=== PATIENT | female | born 1955 | race Caucasian/White ===

== ENCOUNTER 2018-07-21 11:09 | Inpatient (IN) | payer OTHER, MEDICAID ==
[2018-07-21 13:01] LABS: ADD MAN DIFF? NO
[2018-07-21 13:04] LABS: BASOPHIL # 0.1 10^3/ul (0.0-0.1); BASOPHILS % 0.6 % (0.0-2.0); EOSINOPHILS # 0.1 10^3/ul (0.0-0.5); EOSINOPHILS % 1.3 % (0.0-7.0); HEMATOCRIT 39.4 % (37.0-47.0); HEMOGLOBIN 13.5 g/dl (12.0-16.0); LYMPHOCYTES % 19.9 % (15.0-51.0); MEAN CORPUSCULAR HEMOGLOBIN 30.1 pg (29.0-33.0); MEAN CORPUSCULAR HGB CONC 34.3 g/dl (32.0-37.0); MEAN CORPUSCULAR VOLUME 87.9 fl (82.0-101.0); MEAN PLATELET VOLUME 8.7 fl (7.4-10.4); MONOCYTE # 0.8 10^3/ul (0.3-0.9); MONOCYTES % 7.4 % (0.0-11.0); NEUTROPHIL # 7.2 10^3/ul (1.6-7.5); NEUTROPHILS % 70.2 % (39.0-77.0); PLATELET COUNT 218 10^3/UL (140-415); RED BLOOD COUNT 4.48 10^6/ul (4.20-5.40); RED CELL DISTRIBUTION WIDTH 12.6 % (11.5-14.5)
[2018-07-21 13:04] LABS: WHITE BLOOD COUNT 10.2 10^3/ul (4.8-10.8)
[2018-07-21 13:22] LABS: ANION GAP 8 (5-13); BLOOD UREA NITROGEN 10 mg/dl (7-20); CALCIUM 9.4 mg/dl (8.4-10.2); CARBON DIOXIDE 28 mmol/L (21-31); CHLORIDE 100 mmol/L (97-110); Estimated GFR > 60 mL/min (>60); GLUCOSE 79 mg/dl (70-220); POTASSIUM 3.7 mmol/L (3.5-5.1); SODIUM 136 mmol/L (135-144)
[2018-07-21] MEDS: HYDROCODONE/APAP (10/325) TAB PO (15:11)
[2018-07-21] MEDS ORDERED: DOCUSATE SODIUM 100 MG CAP PO (18:30)
[2018-07-21] MEDS: [UNRECOGNIZED DRUG - OTHER] XX (20:00)
[2018-07-21] MEDS ORDERED: PHENYTOIN 100 MG CAP PO (21:00)
[2018-07-21] MEDS: ALBUTEROL HFA 8 GM INHALER INH (21:00)
[2018-07-21] MEDS: SODIUM CHLORIDE 5% BOTH EYES (21:05)
[2018-07-21] MEDS: GABAPENTIN 400 MG CAP PO (21:05)
[2018-07-21] MEDS: IBUPROFEN 800 MG TAB PO (21:05)
[2018-07-21] MEDS: PHENYTOIN 100 MG CAP PO (21:06)
[2018-07-21] MEDS: LAMOTRIGINE 100 MG TAB PO (21:06)
[2018-07-21] MEDS: traZODone 100 MG TAB PO (21:06)
[2018-07-21] MEDS: FAMOTIDINE 20 MG TAB PO (21:06)
[2018-07-22] MEDS: HYDROCODONE/APAP (5/325) TAB PO ×2 (04:43→12:12)
[2018-07-22 05:41] LABS: ADD MAN DIFF? NO
[2018-07-22 05:47] LABS: BASOPHIL # 0.1 10^3/ul (0.0-0.1); BASOPHILS % 0.7 % (0.0-2.0); EOSINOPHILS # 0.2 10^3/ul (0.0-0.5); EOSINOPHILS % 2.3 % (0.0-7.0); HEMATOCRIT 39.3 % (37.0-47.0); HEMOGLOBIN 13.6 g/dl (12.0-16.0); LYMPHOCYTES # 2.2 10^3/ul (0.8-2.9); LYMPHOCYTES % 30.4 % (15.0-51.0); MEAN CORPUSCULAR HEMOGLOBIN 30.8 pg (29.0-33.0); MEAN CORPUSCULAR HGB CONC 34.6 g/dl (32.0-37.0); MEAN CORPUSCULAR VOLUME 88.9 fl (82.0-101.0); MEAN PLATELET VOLUME 8.6 fl (7.4-10.4); MONOCYTE # 0.5 10^3/ul (0.3-0.9); MONOCYTES % 7.3 % (0.0-11.0); NEUTROPHIL # 4.3 10^3/ul (1.6-7.5); NEUTROPHILS % 58.7 % (39.0-77.0); PLATELET COUNT 211 10^3/UL (140-415); RED BLOOD COUNT 4.42 10^6/ul (4.20-5.40); RED CELL DISTRIBUTION WIDTH 12.7 % (11.5-14.5)
[2018-07-22 05:47] LABS: WHITE BLOOD COUNT 7.2 10^3/ul (4.8-10.8)
[2018-07-22] MEDS ORDERED: PANTOPRAZOLE (EC) 40 MG TAB PO (06:00)
[2018-07-22 06:20] LABS: ALANINE AMINOTRANSFERASE 11 IU/L (13-69); ALBUMIN 3.7 g/dl (3.3-4.9); ALBUMIN/GLOBULIN RATIO 1.37; ALKALINE PHOSPHATASE 105 IU/L (42-121); ANION GAP 8 (5-13); ASPARTATE AMINO TRANSFERASE 13 IU/L (15-46); BILIRUBIN,INDIRECT 0.3 mg/dl (0-1.1); BILIRUBIN,TOTAL 0.3 mg/dl (0.2-1.3); BLOOD UREA NITROGEN 8 mg/dl (7-20); CALCIUM 9.5 mg/dl (8.4-10.2); CARBON DIOXIDE 29 mmol/L (21-31); CHLORIDE 103 mmol/L (97-110); CREATININE 0.46 mg/dl (0.44-1.00); Estimated GFR > 60 mL/min (>60); GLUCOSE 90 mg/dl (70-220); POTASSIUM 3.5 mmol/L (3.5-5.1); SODIUM 140 mmol/L (135-144); TOTAL PROTEIN 6.4 g/dl (6.1-8.1)
[2018-07-22] MEDS: QUETIAPINE 25 MG TAB PO (09:00)
[2018-07-22] MEDS: IBUPROFEN 800 MG TAB PO ×2 (09:17→13:00)
[2018-07-22] MEDS: PHENYTOIN 100 MG CAP PO ×2 (09:18→20:35)
[2018-07-22] MEDS: ARIPIPRAZOLE 10 MG TAB PO (09:19)
[2018-07-22] MEDS: DULOXETINE 30 MG CAP DR PO (09:19)
[2018-07-22] MEDS: DOCUSATE SODIUM 100 MG CAP PO (09:19)
[2018-07-22] MEDS: FAMOTIDINE 20 MG TAB PO ×2 (09:20→20:35)
[2018-07-22] MEDS: GABAPENTIN 400 MG CAP PO ×2 (09:20→20:35)
[2018-07-22] MEDS: LAMOTRIGINE 100 MG TAB PO ×2 (09:21→20:36)
[2018-07-22] MEDS: HYDROCHLOROTHIAZIDE 12.5 MG CAP PO (09:21)
[2018-07-22] MEDS: SODIUM CHLORIDE 5% BOTH EYES ×2 (09:22→20:25)
[2018-07-22] MEDS: morphine 2 MG INJ IV ×3 (09:22→21:22)
[2018-07-22] MEDS: FLUTICASONE/VILANTEROL 200-25 INH DEVICE INH (09:22)
[2018-07-22] MEDS ORDERED: hydrALAzine 20 MG INJ IV (12:00)
[2018-07-22] MEDS: AMLODIPINE 5 MG TAB PO (13:09)
[2018-07-22] MEDS: traZODone 100 MG TAB PO (20:35)
[2018-07-23] MEDS: morphine 2 MG INJ IV ×3 (02:28→15:09)
[2018-07-23] MEDS: HYDROCODONE/APAP (5/325) TAB PO ×3 (06:38→20:39)
[2018-07-23] MEDS: PHENYTOIN 100 MG CAP PO ×2 (08:54→21:17)
[2018-07-23] MEDS: LAMOTRIGINE 100 MG TAB PO ×2 (08:55→21:16)
[2018-07-23] MEDS: AMLODIPINE 5 MG TAB PO (08:57)
[2018-07-23] MEDS: HYDROCHLOROTHIAZIDE 12.5 MG CAP PO (08:57)
[2018-07-23] MEDS: QUETIAPINE 25 MG TAB PO ×2 (08:57→21:17)
[2018-07-23] MEDS: SODIUM CHLORIDE 5% BOTH EYES ×2 (08:58→21:21)
[2018-07-23] MEDS: HYDROmorphONE 0.5 MG/0.5 ML SYG IV ×3 (11:34→18:59)
[2018-07-23] MEDS: GABAPENTIN 400 MG CAP PO ×2 (11:34→21:17)
[2018-07-23] MEDS: FAMOTIDINE 20 MG TAB PO ×2 (11:37→21:17)
[2018-07-23] MEDS: ARIPIPRAZOLE 10 MG TAB PO (11:37)
[2018-07-23] MEDS: FLUTICASONE/VILANTEROL 200-25 INH DEVICE INH (11:38)
[2018-07-23] MEDS: DOCUSATE SODIUM 100 MG CAP PO (11:38)
[2018-07-23] MEDS: DULOXETINE 30 MG CAP DR PO ×2 (11:49→21:18)
[2018-07-23] MEDS: traZODone 100 MG TAB PO (21:17)
[2018-07-23] MEDS: ALBUTEROL HFA 8 GM INHALER INH (22:53)
[2018-07-24] MEDS: HYDROCODONE/APAP (5/325) TAB PO ×4 (04:18→23:15)
[2018-07-24] MEDS: HYDROmorphONE 0.5 MG/0.5 ML SYG IV ×4 (07:48→20:09)
[2018-07-24] MEDS: FLUTICASONE/VILANTEROL 200-25 INH DEVICE INH (08:41)
[2018-07-24] MEDS: LAMOTRIGINE 100 MG TAB PO ×2 (08:41→20:10)
[2018-07-24] MEDS: DULOXETINE 30 MG CAP DR PO ×2 (08:41→20:11)
[2018-07-24] MEDS: FAMOTIDINE 20 MG TAB PO ×2 (08:41→20:12)
[2018-07-24] MEDS: GABAPENTIN 400 MG CAP PO ×2 (08:42→20:13)
[2018-07-24] MEDS: SODIUM CHLORIDE 5% BOTH EYES ×2 (08:42→20:14)
[2018-07-24] MEDS: DOCUSATE SODIUM 100 MG CAP PO (08:42)
[2018-07-24] MEDS: PHENYTOIN 100 MG CAP PO ×2 (08:42→20:11)
[2018-07-24] MEDS: AMLODIPINE 5 MG TAB PO (08:43)
[2018-07-24] MEDS: HYDROCHLOROTHIAZIDE 12.5 MG CAP PO (08:44)
[2018-07-24] MEDS: ARIPIPRAZOLE 10 MG TAB PO (10:18)
[2018-07-24 11:40] LABS: ADD MAN DIFF? NO
[2018-07-24 11:46] LABS: WHITE BLOOD COUNT 8.9 10^3/ul (4.8-10.8)
[2018-07-24 11:46] LABS: BASOPHIL # 0.1 10^3/ul (0.0-0.1); BASOPHILS % 0.6 % (0.0-2.0); EOSINOPHILS # 0.2 10^3/ul (0.0-0.5); EOSINOPHILS % 2.2 % (0.0-7.0); HEMATOCRIT 40.4 % (37.0-47.0); HEMOGLOBIN 13.8 g/dl (12.0-16.0); LYMPHOCYTES # 2.2 10^3/ul (0.8-2.9); LYMPHOCYTES % 24.4 % (15.0-51.0); MEAN CORPUSCULAR HEMOGLOBIN 30.2 pg (29.0-33.0); MEAN CORPUSCULAR HGB CONC 34.2 g/dl (32.0-37.0); MEAN CORPUSCULAR VOLUME 88.4 fl (82.0-101.0); MEAN PLATELET VOLUME 8.5 fl (7.4-10.4); MONOCYTE # 0.7 10^3/ul (0.3-0.9); MONOCYTES % 7.9 % (0.0-11.0); NEUTROPHIL # 5.7 10^3/ul (1.6-7.5); NEUTROPHILS % 64.5 % (39.0-77.0); PLATELET COUNT 207 10^3/UL (140-415); RED BLOOD COUNT 4.57 10^6/ul (4.20-5.40); RED CELL DISTRIBUTION WIDTH 12.8 % (11.5-14.5)
[2018-07-24 12:06] LABS: INR 0.94; PARTIAL THROMBOPLASTIN TIME 29.6 Sec (23.0-35.0); PROTIME 12.7 Sec (11.9-14.9)
[2018-07-24 12:11] LABS: ANION GAP 8 (5-13); BLOOD UREA NITROGEN 8 mg/dl (7-20); CALCIUM 9.7 mg/dl (8.4-10.2); CARBON DIOXIDE 31 mmol/L (21-31); CHLORIDE 97 mmol/L (97-110); CREATININE 0.46 mg/dl (0.44-1.00); Estimated GFR > 60 mL/min (>60); GLUCOSE 127 mg/dl (70-220); POTASSIUM 3.2 mmol/L (3.5-5.1); SODIUM 136 mmol/L (135-144)
[2018-07-24] MEDS: POTASSIUM CHLORIDE 20 MEQ POWDER FOR ORAL SOLN PO (16:18)
[2018-07-24] MEDS: QUETIAPINE 25 MG TAB PO ×2 (20:11→22:39)
[2018-07-24] MEDS: traZODone 100 MG TAB PO (22:39)
[2018-07-25] MEDS: HYDROmorphONE 0.5 MG/0.5 ML SYG IV ×4 (05:23→16:22)
[2018-07-25 06:10] LABS: ANION GAP 6 (5-13); BLOOD UREA NITROGEN 10 mg/dl (7-20); CALCIUM 9.3 mg/dl (8.4-10.2); CARBON DIOXIDE 31 mmol/L (21-31); CHLORIDE 101 mmol/L (97-110); CREATININE 0.46 mg/dl (0.44-1.00); Estimated GFR > 60 mL/min (>60); GLUCOSE 104 mg/dl (70-220); POTASSIUM 3.5 mmol/L (3.5-5.1); SODIUM 138 mmol/L (135-144)
[2018-07-25] MEDS ORDERED: CEFAZOLIN 1 GM INJ ×2 (07:32→10:49)
[2018-07-25] MEDS ORDERED: PHENYLephrine (100 MCG/ML) 10ML SYG (08:04)
[2018-07-25] MEDS ORDERED: HYDROmorphONE 2 MG/ML SYG (08:04)
[2018-07-25] MEDS: GABAPENTIN 400 MG CAP PO ×2 (09:00→19:46)
[2018-07-25] MEDS: HYDROCHLOROTHIAZIDE 12.5 MG CAP PO (09:00)
[2018-07-25] MEDS: AMLODIPINE 5 MG TAB PO (09:00)
[2018-07-25] MEDS: FLUTICASONE/VILANTEROL 200-25 INH DEVICE INH (09:00)
[2018-07-25] MEDS: SODIUM CHLORIDE 5% BOTH EYES ×2 (09:00→23:06)
[2018-07-25] MEDS: ARIPIPRAZOLE 10 MG TAB PO (09:00)
[2018-07-25] MEDS: DOCUSATE SODIUM 100 MG CAP PO ×3 (09:00→21:00)
[2018-07-25] MEDS: DULOXETINE 30 MG CAP DR PO ×2 (09:00→17:58)
[2018-07-25] MEDS: PHENYTOIN 100 MG CAP PO ×2 (09:00→19:45)
[2018-07-25] MEDS: FAMOTIDINE 20 MG TAB PO ×2 (09:00→19:46)
[2018-07-25] MEDS ORDERED: FENTAnyl 50 MCG/ML VIAL (09:00)
[2018-07-25] MEDS: LAMOTRIGINE 100 MG TAB PO ×2 (09:00→19:45)
[2018-07-25] MEDS ORDERED: LABETALOL HCL 20MG INJ (09:33)
[2018-07-25] MEDS: VANCOMYCIN 1 GM INJ (09:36)
[2018-07-25] MEDS: HEPARIN 1000 UNITS/ML 10 ML INJ (09:37)
[2018-07-25] MEDS: THROMBIN (BOVINE) 5,000 UNIT VIAL TP ×2 (09:38→10:27)
[2018-07-25] MEDS: GELATIN SIZE 100 SPONGE (09:38)
[2018-07-25] MEDS ORDERED: ACETAMINOPHEN 325 MG TAB PO (10:30)
[2018-07-25] MEDS ORDERED: NALOXONE (0.4 MG/ML) INJ IV (10:30)
[2018-07-25] MEDS: HEMOSTATIC MATRIX SYG ZFS (10:30)
[2018-07-25] MEDS ORDERED: AL HYDROX/MG HYDROX/SIMETH 30 ML CUP PO (10:30)
[2018-07-25] MEDS ORDERED: NACL 0.9% 3 ML SYG IV (10:30)
[2018-07-25] MEDS ORDERED: DEXAMETHASONE 4 MG/ML 5 ML INJ (10:49)
[2018-07-25] MEDS ORDERED: ONDANSETRON 4 MG INJ (10:50)
[2018-07-25] MEDS ORDERED: SUGAMMADEX SODIUM 200 MG/2 ML VIAL IV (11:31)
[2018-07-25] MEDS ORDERED: METOCLOPRAMIDE 10 MG INJ IV (12:00)
[2018-07-25] MEDS ORDERED: EPHEDrine SULFATE 50 MG/5 ML SYG IV (12:00)
[2018-07-25] MEDS ORDERED: LABETALOL HCL 20MG INJ IV (12:00)
[2018-07-25] MEDS ORDERED: MIDAZOLAM 1 MG/ML 2 ML INJ IV (12:00)
[2018-07-25] MEDS ORDERED: HYDROmorphONE 0.5 MG/0.5 ML SYG IV ×2 (12:00)
[2018-07-25] MEDS ORDERED: hydrALAzine 20 MG INJ IV (12:00)
[2018-07-25] MEDS ORDERED: MEPERIDINE 25 MG INJ IV (12:00)
[2018-07-25] MEDS ORDERED: ONDANSETRON 4 MG INJ IV (12:00)
[2018-07-25] MEDS ORDERED: DIPHENHYDRAMINE 50 MG INJ IV (12:00)
[2018-07-25] MEDS ORDERED: ALBUTEROL 0.083% (NEB) 2.5 MG/3 ML AMP HHN (12:00)
[2018-07-25] MEDS: ONDANSETRON 4 MG INJ IV (12:41)
[2018-07-25] MEDS: CEFAZOLIN 2 GM/50 ML (PMX) 50 ML IVPB ×2 (13:19→23:06)
[2018-07-25] MEDS: HYDROCODONE/APAP (5/325) TAB PO (13:31)
[2018-07-25] MEDS ORDERED: MAGNESIUM SULFATE 2 GM/50 ML 50 ML (15:57)
[2018-07-25 16:19] LABS: WHITE BLOOD COUNT 20.5 10^3/ul (4.8-10.8)
[2018-07-25 16:19] LABS: HEMATOCRIT 36.6 % (37.0-47.0); HEMOGLOBIN 12.6 g/dl (12.0-16.0); MEAN CORPUSCULAR HEMOGLOBIN 30.6 pg (29.0-33.0); MEAN CORPUSCULAR HGB CONC 34.4 g/dl (32.0-37.0); MEAN CORPUSCULAR VOLUME 88.8 fl (82.0-101.0); MEAN PLATELET VOLUME 9.2 fl (7.4-10.4); PLATELET COUNT 216 10^3/UL (140-415); RED BLOOD COUNT 4.12 10^6/ul (4.20-5.40); RED CELL DISTRIBUTION WIDTH 12.5 % (11.5-14.5)
[2018-07-25] MEDS: NS + KCL 20 MEQ 1,000 ML IV ×2 (16:22→23:07)
[2018-07-25 16:30] LABS: ADD MAN DIFF? YES
[2018-07-25 16:41] LABS: ALANINE AMINOTRANSFERASE 24 IU/L (13-69); ALBUMIN 3.5 g/dl (3.3-4.9); ALBUMIN/GLOBULIN RATIO 1.29; ALKALINE PHOSPHATASE 103 IU/L (42-121); ANION GAP 10 (5-13); ASPARTATE AMINO TRANSFERASE 20 IU/L (15-46); BILIRUBIN,INDIRECT 0.6 mg/dl (0-1.1); BILIRUBIN,TOTAL 0.6 mg/dl (0.2-1.3); BLOOD UREA NITROGEN 13 mg/dl (7-20); CALCIUM 9.5 mg/dl (8.4-10.2); CARBON DIOXIDE 27 mmol/L (21-31); CHLORIDE 100 mmol/L (97-110); CREATININE 0.54 mg/dl (0.44-1.00); Estimated GFR > 60 mL/min (>60); GLUCOSE 167 mg/dl (70-220); MAGNESIUM 1.5 mg/dl (1.7-2.5); PHOSPHORUS 2.5 mg/dl (2.5-4.9); POTASSIUM 3.7 mmol/L (3.5-5.1); SODIUM 137 mmol/L (135-144); TOTAL PROTEIN 6.2 g/dl (6.1-8.1)
[2018-07-25 16:54] LABS: BAND NEUTROPHILS #M 0.4 10^3/ul (0.0-0.6); BAND NEUTROPHILS % (M) 2 % (0-4); LYMPHOCYTES #M 0.8 10^3/ul (0.8-2.9); LYMPHOCYTES % (M) 4 % (15-51); MONOCYTE #M 0.8 10^3/ul (0.3-0.9); MONOCYTES % (M) 4 % (0-11); PLATELET ESTIMATE NORMAL; SEG NEUT #M 18.5 10^3/ul (1.6-7.5); SEGMENTED NEUTROPHILS (M) % 90 % (39-77); SMUDGE%M 11 % (0-0)
[2018-07-25] MEDS: HYDROmorphONE 0.2 MG/ML PCA IV (17:51)
[2018-07-25] MEDS: QUETIAPINE 25 MG TAB PO (17:58)
[2018-07-25] MEDS: traZODone 100 MG TAB PO (19:45)
[2018-07-25] MEDS: ZOLPIDEM 5 MG TAB PO (19:45)
[2018-07-26] MEDS: NS + KCL 20 MEQ 1,000 ML IV ×2 (01:04→13:37)
[2018-07-26] MEDS: KETOROLAC 30 MG INJ IV ×2 (01:04→17:11)
[2018-07-26 05:31] LABS: HEMATOCRIT 32.5 % (37.0-47.0)
[2018-07-26 05:59] LABS: ANION GAP 6 (5-13); BLOOD UREA NITROGEN 17 mg/dl (7-20); CALCIUM 9.1 mg/dl (8.4-10.2); CARBON DIOXIDE 29 mmol/L (21-31); CHLORIDE 104 mmol/L (97-110); CREATININE 0.78 mg/dl (0.44-1.00); Estimated GFR > 60 mL/min (>60); GLUCOSE 151 mg/dl (70-220); POTASSIUM 4.3 mmol/L (3.5-5.1); SODIUM 139 mmol/L (135-144)
[2018-07-26] MEDS: CEFAZOLIN 2 GM/50 ML (PMX) 50 ML IVPB ×3 (06:20→23:48)
[2018-07-26] MEDS: SODIUM CHLORIDE 5% BOTH EYES ×2 (09:00→20:41)
[2018-07-26] MEDS: FLUTICASONE/VILANTEROL 200-25 INH DEVICE INH (09:00)
[2018-07-26] MEDS: GABAPENTIN 400 MG CAP PO ×2 (09:14→20:40)
[2018-07-26] MEDS: PHENYTOIN 100 MG CAP PO ×2 (09:14→20:41)
[2018-07-26] MEDS: LAMOTRIGINE 100 MG TAB PO ×2 (09:14→20:40)
[2018-07-26] MEDS: DOCUSATE SODIUM 100 MG CAP PO ×2 (09:14→20:41)
[2018-07-26] MEDS: AMLODIPINE 5 MG TAB PO (09:15)
[2018-07-26] MEDS: DULOXETINE 30 MG CAP DR PO ×2 (09:15→20:41)
[2018-07-26] MEDS: ARIPIPRAZOLE 10 MG TAB PO (09:15)
[2018-07-26] MEDS: HYDROCHLOROTHIAZIDE 12.5 MG CAP PO (09:15)
[2018-07-26] MEDS: FAMOTIDINE 20 MG TAB PO ×2 (09:15→20:41)
[2018-07-26] MEDS: HYDROmorphONE 0.2 MG/ML PCA IV (10:44)
[2018-07-26] MEDS ORDERED: LORAZEPAM 2 MG INJ (17:24)
[2018-07-26] MEDS: LORAZEPAM 2 MG INJ IV (17:41)
[2018-07-26] MEDS: traZODone 100 MG TAB PO (20:40)
[2018-07-26] MEDS: HYDROmorphONE 0.5 MG/0.5 ML SYG IV (20:48)
[2018-07-26] MEDS: ZOLPIDEM 5 MG TAB PO (23:48)
[2018-07-27] MEDS: NS + KCL 20 MEQ 1,000 ML IV ×2 (04:50→12:54)
[2018-07-27 05:13] LABS: ADD MAN DIFF? NO
[2018-07-27] MEDS: CEFAZOLIN 2 GM/50 ML (PMX) 50 ML IVPB ×3 (05:14→21:49)
[2018-07-27 05:21] LABS: ABNORMAL IP MESSAGE 1; BASOPHIL # 0.1 10^3/ul (0.0-0.1); BASOPHILS % 0.4 % (0.0-2.0); EOSINOPHILS # 0.1 10^3/ul (0.0-0.5); EOSINOPHILS % 0.4 % (0.0-7.0); HEMATOCRIT 25.5 % (37.0-47.0); HEMOGLOBIN 8.6 g/dl (12.0-16.0); LYMPHOCYTES # 1.7 10^3/ul (0.8-2.9); LYMPHOCYTES % 10.9 % (15.0-51.0); MEAN CORPUSCULAR HEMOGLOBIN 30.8 pg (29.0-33.0); MEAN CORPUSCULAR HGB CONC 33.7 g/dl (32.0-37.0); MEAN CORPUSCULAR VOLUME 91.4 fl (82.0-101.0); MEAN PLATELET VOLUME 9.2 fl (7.4-10.4); MONOCYTE # 1.5 10^3/ul (0.3-0.9); MONOCYTES % 9.8 % (0.0-11.0); NEUTROPHILS % 77.3 % (39.0-77.0); PLATELET COUNT 160 10^3/UL (140-415); RED BLOOD COUNT 2.79 10^6/ul (4.20-5.40)
[2018-07-27 05:21] LABS: WHITE BLOOD COUNT 15.5 10^3/ul (4.8-10.8)
[2018-07-27 05:41] LABS: POSITIVE DIFF @See below
[2018-07-27 06:08] LABS: ANION GAP 3 (5-13); BLOOD UREA NITROGEN 11 mg/dl (7-20); CALCIUM 8.7 mg/dl (8.4-10.2); CARBON DIOXIDE 27 mmol/L (21-31); CHLORIDE 107 mmol/L (97-110); CREATININE 0.43 mg/dl (0.44-1.00); Estimated GFR > 60 mL/min (>60); GLUCOSE 119 mg/dl (70-220); SODIUM 137 mmol/L (135-144)
[2018-07-27] MEDS: HYDROmorphONE 0.5 MG/0.5 ML SYG IV ×2 (08:39→21:34)
[2018-07-27] MEDS: SODIUM CHLORIDE 5% BOTH EYES ×2 (09:02→21:29)
[2018-07-27] MEDS: DULOXETINE 30 MG CAP DR PO ×2 (09:04→21:20)
[2018-07-27] MEDS: PHENYTOIN 100 MG CAP PO ×2 (09:04→21:24)
[2018-07-27] MEDS: ARIPIPRAZOLE 10 MG TAB PO (09:04)
[2018-07-27] MEDS: GABAPENTIN 400 MG CAP PO ×2 (09:04→21:28)
[2018-07-27] MEDS: LAMOTRIGINE 100 MG TAB PO ×2 (09:04→21:20)
[2018-07-27] MEDS: AMLODIPINE 5 MG TAB PO (09:05)
[2018-07-27] MEDS: FAMOTIDINE 20 MG TAB PO ×2 (09:05→21:28)
[2018-07-27] MEDS: DOCUSATE SODIUM 100 MG CAP PO ×2 (09:05→21:24)
[2018-07-27] MEDS: HYDROCHLOROTHIAZIDE 12.5 MG CAP PO (09:05)
[2018-07-27] MEDS: FLUTICASONE/VILANTEROL 200-25 INH DEVICE INH (11:08)
[2018-07-27] MEDS: KETOROLAC 30 MG INJ IV (12:56)
[2018-07-27] MEDS: LORAZEPAM 2 MG INJ IV (13:30)
[2018-07-27] MEDS: ONDANSETRON 4 MG INJ IV (17:38)
[2018-07-27] MEDS: traZODone 100 MG TAB PO (21:24)
[2018-07-27] MEDS: ZOLPIDEM 5 MG TAB PO (21:28)
[2018-07-27] MEDS: ALBUTEROL HFA 8 GM INHALER INH (21:49)
[2018-07-28] MEDS: NS + KCL 20 MEQ 1,000 ML IV ×2 (01:07→11:40)
[2018-07-28 05:43] LABS: ADD MAN DIFF? NO
[2018-07-28 05:47] LABS: BASOPHILS % 0.2 % (0.0-2.0); EOSINOPHILS # 0.1 10^3/ul (0.0-0.5); EOSINOPHILS % 0.8 % (0.0-7.0); HEMATOCRIT 28.1 % (37.0-47.0); HEMOGLOBIN 9.7 g/dl (12.0-16.0); LYMPHOCYTES # 1.6 10^3/ul (0.8-2.9); LYMPHOCYTES % 9.6 % (15.0-51.0); MEAN CORPUSCULAR HEMOGLOBIN 30.8 pg (29.0-33.0); MEAN CORPUSCULAR HGB CONC 34.5 g/dl (32.0-37.0); MEAN CORPUSCULAR VOLUME 89.2 fl (82.0-101.0); MONOCYTE # 1.2 10^3/ul (0.3-0.9); NEUTROPHIL # 13.4 10^3/ul (1.6-7.5); NEUTROPHILS % 81.3 % (39.0-77.0); NUCLEATED RED BLOOD CELLS% 0.1 /100WBC (0.0-0.0); PLATELET COUNT 209 10^3/UL (140-415); RED BLOOD COUNT 3.15 10^6/ul (4.20-5.40); RED CELL DISTRIBUTION WIDTH 12.9 % (11.5-14.5)
[2018-07-28 05:47] LABS: WHITE BLOOD COUNT 16.5 10^3/ul (4.8-10.8)
[2018-07-28] MEDS: HYDROmorphONE 0.5 MG/0.5 ML SYG IV ×3 (05:53→19:57)
[2018-07-28 06:07] LABS: INR 1.15; PROTIME 14.8 Sec (11.9-14.9); PT RATIO 1.2
[2018-07-28 06:08] LABS: PARTIAL THROMBOPLASTIN TIME 31.6 Sec (23.0-35.0)
[2018-07-28 06:29] LABS: ANION GAP 6 (5-13); BLOOD UREA NITROGEN 5 mg/dl (7-20); CALCIUM 8.6 mg/dl (8.4-10.2); CARBON DIOXIDE 25 mmol/L (21-31); CHLORIDE 106 mmol/L (97-110); CREATININE 0.39 mg/dl (0.44-1.00); Estimated GFR > 60 mL/min (>60); GLUCOSE 105 mg/dl (70-220); POTASSIUM 3.8 mmol/L (3.5-5.1); SODIUM 137 mmol/L (135-144)
[2018-07-28] MEDS: CEFAZOLIN 2 GM/50 ML (PMX) 50 ML IVPB ×3 (06:47→21:47)
[2018-07-28] MEDS ORDERED: GELATIN SIZE 100 SPONGE (07:16)
[2018-07-28] MEDS ORDERED: THROMBIN (BOVINE) 5,000 UNIT VIAL TP (07:16)
[2018-07-28] MEDS ORDERED: LIDOCAINE 2% (SDV) 5 ML INJ (08:10)
[2018-07-28] MEDS ORDERED: MIDAZOLAM 1 MG/ML 2 ML INJ (08:10)
[2018-07-28] MEDS ORDERED: ROCURONIUM 50 MG INJ ×2 (08:10→09:07)
[2018-07-28] MEDS ORDERED: PROPOFOL 20 ML (08:10)
[2018-07-28] MEDS ORDERED: FENTAnyl 50 MCG/ML VIAL (08:15)
[2018-07-28] MEDS ORDERED: DEXAMETHASONE 4 MG/ML 5 ML INJ (08:50)
[2018-07-28] MEDS ORDERED: ONDANSETRON 4 MG INJ (08:50)
[2018-07-28] MEDS: FAMOTIDINE 20 MG TAB PO ×2 (09:00→20:20)
[2018-07-28] MEDS: FLUTICASONE/VILANTEROL 200-25 INH DEVICE INH (09:00)
[2018-07-28] MEDS: ARIPIPRAZOLE 10 MG TAB PO (09:00)
[2018-07-28] MEDS: DULOXETINE 30 MG CAP DR PO ×2 (09:00→20:19)
[2018-07-28] MEDS: AMLODIPINE 5 MG TAB PO (09:00)
[2018-07-28] MEDS: DOCUSATE SODIUM 100 MG CAP PO ×2 (09:00→20:22)
[2018-07-28] MEDS: LAMOTRIGINE 100 MG TAB PO ×2 (09:00→20:20)
[2018-07-28] MEDS ORDERED: FAMOTIDINE 20 MG INJ (09:03)
[2018-07-28] MEDS ORDERED: LABETALOL HCL 20MG INJ (09:10)
[2018-07-28] MEDS ORDERED: ONDANSETRON 4 MG INJ IV (09:30)
[2018-07-28] MEDS: ROPIVACAINE 0.5 % 30 ML VIAL (09:30)
[2018-07-28] MEDS ORDERED: ALBUTEROL 0.083% (NEB) 2.5 MG/3 ML AMP HHN (09:30)
[2018-07-28] MEDS ORDERED: MEPERIDINE 25 MG INJ IV (09:30)
[2018-07-28] MEDS ORDERED: LABETALOL HCL 20MG INJ IV (09:30)
[2018-07-28] MEDS ORDERED: DIPHENHYDRAMINE 50 MG INJ IV (09:30)
[2018-07-28] MEDS ORDERED: HYDROmorphONE 0.5 MG/0.5 ML SYG IV ×3 (09:30)
[2018-07-28] MEDS ORDERED: hydrALAzine 20 MG INJ IV (09:30)
[2018-07-28] MEDS: POLYMYXIN/BACITRACIN 1L IRRIG (09:30)
[2018-07-28] MEDS ORDERED: EPHEDrine SULFATE 50 MG/5 ML SYG IV (09:30)
[2018-07-28] MEDS ORDERED: FENTAnyl 50 MCG/ML VIAL IV (09:30)
[2018-07-28] MEDS ORDERED: HYDROmorphONE 2 MG/ML SYG (10:46)
[2018-07-28] MEDS: SODIUM CHLORIDE 5% BOTH EYES ×2 (11:42→20:18)
[2018-07-28] MEDS: KETOROLAC 15 MG INJ IV ×3 (12:48→23:54)
[2018-07-28] MEDS: HYDROCHLOROTHIAZIDE 12.5 MG CAP PO (12:56)
[2018-07-28] MEDS: PHENYTOIN 100 MG CAP PO ×2 (12:56→20:20)
[2018-07-28] MEDS: GABAPENTIN 400 MG CAP PO ×2 (12:57→20:19)
[2018-07-28] MEDS: traZODone 100 MG TAB PO (20:20)
[2018-07-29] MEDS: HYDROmorphONE 0.5 MG/0.5 ML SYG IV ×5 (01:32→22:24)
[2018-07-29] MEDS: HYDROCODONE/APAP (5/325) TAB PO ×3 (04:22→17:06)
[2018-07-29 05:12] LABS: ADD MAN DIFF? NO
[2018-07-29 05:24] LABS: BASOPHIL # 0.1 10^3/ul (0.0-0.1); BASOPHILS % 0.4 % (0.0-2.0); EOSINOPHILS # 0.3 10^3/ul (0.0-0.5); EOSINOPHILS % 2.1 % (0.0-7.0); HEMATOCRIT 20.3 % (37.0-47.0); LYMPHOCYTES # 2.4 10^3/ul (0.8-2.9); LYMPHOCYTES % 19.7 % (15.0-51.0); MEAN CORPUSCULAR HEMOGLOBIN 31.4 pg (29.0-33.0); MEAN CORPUSCULAR HGB CONC 34.5 g/dl (32.0-37.0); MEAN PLATELET VOLUME 9.2 fl (7.4-10.4); MONOCYTE # 1.1 10^3/ul (0.3-0.9); MONOCYTES % 8.8 % (0.0-11.0); NEUTROPHIL # 8.3 10^3/ul (1.6-7.5); NEUTROPHILS % 67.9 % (39.0-77.0); PLATELET COUNT 211 10^3/UL (140-415); RED BLOOD COUNT 2.23 10^6/ul (4.20-5.40); RED CELL DISTRIBUTION WIDTH 13.1 % (11.5-14.5)
[2018-07-29 05:24] LABS: WHITE BLOOD COUNT 12.2 10^3/ul (4.8-10.8)
[2018-07-29] MEDS: KETOROLAC 15 MG INJ IV ×4 (05:45→23:09)
[2018-07-29 06:06] LABS: ANION GAP 4 (5-13); BLOOD UREA NITROGEN 8 mg/dl (7-20); CALCIUM 8.1 mg/dl (8.4-10.2); CARBON DIOXIDE 26 mmol/L (21-31); CHLORIDE 103 mmol/L (97-110); CREATININE 0.42 mg/dl (0.44-1.00); Estimated GFR > 60 mL/min (>60); GLUCOSE 99 mg/dl (70-220); POTASSIUM 3.7 mmol/L (3.5-5.1); SODIUM 133 mmol/L (135-144)
[2018-07-29] MEDS: ONDANSETRON 4 MG INJ IV ×2 (06:17→17:34)
[2018-07-29] MEDS: NS + KCL 20 MEQ 1,000 ML IV (06:17)
[2018-07-29] MEDS: CEFAZOLIN 2 GM/50 ML (PMX) 50 ML IVPB ×3 (06:18→23:34)
[2018-07-29] MEDS: DULOXETINE 30 MG CAP DR PO ×2 (09:09→21:00)
[2018-07-29] MEDS: ARIPIPRAZOLE 10 MG TAB PO (09:09)
[2018-07-29] MEDS: SODIUM CHLORIDE 5% BOTH EYES ×2 (09:09→21:00)
[2018-07-29] MEDS: LAMOTRIGINE 100 MG TAB PO ×2 (09:10→21:00)
[2018-07-29] MEDS: DOCUSATE SODIUM 100 MG CAP PO ×2 (09:10→20:15)
[2018-07-29] MEDS: FAMOTIDINE 20 MG TAB PO ×2 (09:10→21:00)
[2018-07-29] MEDS: GABAPENTIN 400 MG CAP PO ×2 (09:10→21:00)
[2018-07-29] MEDS: AMLODIPINE 5 MG TAB PO (09:11)
[2018-07-29] MEDS: HYDROCHLOROTHIAZIDE 12.5 MG CAP PO (09:11)
[2018-07-29] MEDS: PHENYTOIN 100 MG CAP PO ×2 (09:19→21:00)
[2018-07-29] MEDS: FLUTICASONE/VILANTEROL 200-25 INH DEVICE INH (13:47)
[2018-07-29 18:33] LABS: IMMEDIATE SPIN CROSSMATCH 1 1
[2018-07-29] MEDS: SOD CHLORIDE 0.9% 250 ML IV* (18:50)
[2018-07-29] MEDS: CALCIUM CARBONATE 500 MG CHEW TAB PO (18:55)
[2018-07-29] MEDS: traZODone 100 MG TAB PO (21:00)
[2018-07-30] MEDS: ONDANSETRON 4 MG INJ IV (03:03)
[2018-07-30] MEDS: HYDROmorphONE 0.5 MG/0.5 ML SYG IV ×5 (03:04→20:58)
[2018-07-30] MEDS: KETOROLAC 15 MG INJ IV ×4 (05:17→23:45)
[2018-07-30 05:46] LABS: ADD MAN DIFF? NO
[2018-07-30 05:48] LABS: WHITE BLOOD COUNT 10.4 10^3/ul (4.8-10.8)
[2018-07-30 05:48] LABS: BASOPHILS % 0.3 % (0.0-2.0); EOSINOPHILS # 0.2 10^3/ul (0.0-0.5); EOSINOPHILS % 1.9 % (0.0-7.0); HEMATOCRIT 24.3 % (37.0-47.0); HEMOGLOBIN 8.3 g/dl (12.0-16.0); LYMPHOCYTES # 1.4 10^3/ul (0.8-2.9); LYMPHOCYTES % 13.2 % (15.0-51.0); MEAN CORPUSCULAR HEMOGLOBIN 30.5 pg (29.0-33.0); MEAN CORPUSCULAR HGB CONC 34.2 g/dl (32.0-37.0); MEAN CORPUSCULAR VOLUME 89.3 fl (82.0-101.0); MEAN PLATELET VOLUME 9.1 fl (7.4-10.4); MONOCYTE # 1.1 10^3/ul (0.3-0.9); MONOCYTES % 10.1 % (0.0-11.0); NEUTROPHIL # 7.6 10^3/ul (1.6-7.5); NEUTROPHILS % 72.8 % (39.0-77.0); NUCLEATED RED BLOOD CELLS% 0.2 /100WBC (0.0-0.0); PLATELET COUNT 211 10^3/UL (140-415); RED BLOOD COUNT 2.72 10^6/ul (4.20-5.40); RED CELL DISTRIBUTION WIDTH 13.1 % (11.5-14.5)
[2018-07-30 06:45] LABS: ANION GAP 5 (5-13); Estimated GFR > 60 mL/min (>60)
[2018-07-30 06:47] LABS: POTASSIUM 3.5 mmol/L (3.5-5.1); SODIUM 134 mmol/L (135-144)
[2018-07-30 06:48] LABS: BLOOD UREA NITROGEN 4 mg/dl (7-20); CALCIUM 8.4 mg/dl (8.4-10.2); CARBON DIOXIDE 29 mmol/L (21-31); CHLORIDE 100 mmol/L (97-110); CREATININE 0.35 mg/dl (0.44-1.00); GLUCOSE 92 mg/dl (70-220); MAGNESIUM 1.6 mg/dl (1.7-2.5)
[2018-07-30] MEDS: CEFAZOLIN 2 GM/50 ML (PMX) 50 ML IVPB ×3 (06:55→23:45)
[2018-07-30] MEDS: SODIUM CHLORIDE 5% BOTH EYES ×2 (09:00→21:00)
[2018-07-30] MEDS: DOCUSATE SODIUM 100 MG CAP PO ×2 (09:00→21:04)
[2018-07-30] MEDS: FAMOTIDINE 20 MG TAB PO ×2 (09:03→21:05)
[2018-07-30] MEDS: GABAPENTIN 400 MG CAP PO ×2 (09:03→21:05)
[2018-07-30] MEDS: LAMOTRIGINE 100 MG TAB PO ×2 (09:03→21:05)
[2018-07-30] MEDS: PHENYTOIN 100 MG CAP PO ×2 (09:03→21:04)
[2018-07-30] MEDS: DULOXETINE 30 MG CAP DR PO ×2 (09:04→21:04)
[2018-07-30] MEDS: ARIPIPRAZOLE 10 MG TAB PO (09:04)
[2018-07-30] MEDS: CALCIUM CARBONATE 500 MG CHEW TAB PO ×3 (09:04→17:40)
[2018-07-30] MEDS: AMLODIPINE 5 MG TAB PO (09:05)
[2018-07-30] MEDS: HYDROCHLOROTHIAZIDE 12.5 MG CAP PO (09:05)
[2018-07-30] MEDS: FLUTICASONE/VILANTEROL 200-25 INH DEVICE INH (09:14)
[2018-07-30] MEDS: HYDROCODONE/APAP (5/325) TAB PO ×2 (10:45→19:05)
[2018-07-30] MEDS: MAGNESIUM SULFATE 2 GM/50 ML 50 ML IVPB (13:02)
[2018-07-30] MEDS: traZODone 100 MG TAB PO (21:04)
[2018-07-31] MEDS: HYDROCODONE/APAP (5/325) TAB PO ×5 (01:34→23:35)
[2018-07-31] MEDS: HYDROmorphONE 0.5 MG/0.5 ML SYG IV ×4 (04:30→21:13)
[2018-07-31 05:15] LABS: ADD MAN DIFF? NO
[2018-07-31 05:21] LABS: WHITE BLOOD COUNT 10.9 10^3/ul (4.8-10.8)
[2018-07-31 05:21] LABS: BASOPHILS % 0.3 % (0.0-2.0); EOSINOPHILS # 0.2 10^3/ul (0.0-0.5); EOSINOPHILS % 1.9 % (0.0-7.0); HEMATOCRIT 23.8 % (37.0-47.0); HEMOGLOBIN 8.2 g/dl (12.0-16.0); LYMPHOCYTES # 1.5 10^3/ul (0.8-2.9); LYMPHOCYTES % 13.9 % (15.0-51.0); MEAN CORPUSCULAR HEMOGLOBIN 30.9 pg (29.0-33.0); MEAN CORPUSCULAR HGB CONC 34.5 g/dl (32.0-37.0); MEAN CORPUSCULAR VOLUME 89.8 fl (82.0-101.0); MEAN PLATELET VOLUME 9.3 fl (7.4-10.4); MONOCYTE # 0.9 10^3/ul (0.3-0.9); NEUTROPHILS % 73.3 % (39.0-77.0); NUCLEATED RED BLOOD CELLS% 0.2 /100WBC (0.0-0.0); PLATELET COUNT 234 10^3/UL (140-415); RED BLOOD COUNT 2.65 10^6/ul (4.20-5.40); RED CELL DISTRIBUTION WIDTH 13.1 % (11.5-14.5)
[2018-07-31 05:49] LABS: ANION GAP 5 (5-13); BLOOD UREA NITROGEN 3 mg/dl (7-20); CALCIUM 8.9 mg/dl (8.4-10.2); CARBON DIOXIDE 29 mmol/L (21-31); CHLORIDE 99 mmol/L (97-110); CREATININE 0.37 mg/dl (0.44-1.00); Estimated GFR > 60 mL/min (>60); GLUCOSE 91 mg/dl (70-220); MAGNESIUM 1.6 mg/dl (1.7-2.5); POTASSIUM 3.3 mmol/L (3.5-5.1); SODIUM 133 mmol/L (135-144)
[2018-07-31] MEDS: KETOROLAC 15 MG INJ IV (05:54)
[2018-07-31] MEDS: CEFAZOLIN 2 GM/50 ML (PMX) 50 ML IVPB ×3 (08:25→22:45)
[2018-07-31] MEDS: SODIUM CHLORIDE 5% BOTH EYES ×2 (09:00→21:00)
[2018-07-31] MEDS: FLUTICASONE/VILANTEROL 200-25 INH DEVICE INH (09:23)
[2018-07-31] MEDS: PHENYTOIN 100 MG CAP PO ×2 (09:24→21:13)
[2018-07-31] MEDS: FAMOTIDINE 20 MG TAB PO ×2 (09:25→21:13)
[2018-07-31] MEDS: ARIPIPRAZOLE 10 MG TAB PO (09:25)
[2018-07-31] MEDS: GABAPENTIN 400 MG CAP PO ×2 (09:25→21:13)
[2018-07-31] MEDS: LAMOTRIGINE 100 MG TAB PO ×2 (09:26→21:14)
[2018-07-31] MEDS: DULOXETINE 30 MG CAP DR PO ×2 (09:27→21:13)
[2018-07-31] MEDS: CALCIUM CARBONATE 500 MG CHEW TAB PO ×3 (09:27→18:15)
[2018-07-31] MEDS: AMLODIPINE 5 MG TAB PO (09:27)
[2018-07-31] MEDS: DOCUSATE SODIUM 100 MG CAP PO ×2 (09:27→21:00)
[2018-07-31] MEDS: HYDROCHLOROTHIAZIDE 12.5 MG CAP PO (09:28)
[2018-07-31] MEDS: POTASSIUM CHLORIDE 20 MEQ POWDER FOR ORAL SOLN PO (16:55)
[2018-07-31] MEDS: traZODone 100 MG TAB PO (21:14)
[2018-08-01] MEDS: HYDROmorphONE 0.5 MG/0.5 ML SYG IV ×3 (01:36→11:26)
[2018-08-01] MEDS: HYDROCODONE/APAP (5/325) TAB PO ×5 (04:57→22:03)
[2018-08-01 05:16] LABS: ADD MAN DIFF? NO
[2018-08-01 05:19] LABS: WHITE BLOOD COUNT 9.6 10^3/ul (4.8-10.8)
[2018-08-01 05:19] LABS: BASOPHILS % 0.3 % (0.0-2.0); EOSINOPHILS # 0.2 10^3/ul (0.0-0.5); EOSINOPHILS % 2.5 % (0.0-7.0); HEMATOCRIT 24.3 % (37.0-47.0); HEMOGLOBIN 7.9 g/dl (12.0-16.0); LYMPHOCYTES # 1.4 10^3/ul (0.8-2.9); LYMPHOCYTES % 14.9 % (15.0-51.0); MEAN CORPUSCULAR HEMOGLOBIN 29.8 pg (29.0-33.0); MEAN CORPUSCULAR HGB CONC 32.5 g/dl (32.0-37.0); MEAN CORPUSCULAR VOLUME 91.7 fl (82.0-101.0); MEAN PLATELET VOLUME 8.9 fl (7.4-10.4); MONOCYTE # 0.8 10^3/ul (0.3-0.9); MONOCYTES % 8.7 % (0.0-11.0); NEUTROPHIL # 6.6 10^3/ul (1.6-7.5); NEUTROPHILS % 68.9 % (39.0-77.0); NUCLEATED RED BLOOD CELLS% 0.2 /100WBC (0.0-0.0); PLATELET COUNT 279 10^3/UL (140-415); RED BLOOD COUNT 2.65 10^6/ul (4.20-5.40); RED CELL DISTRIBUTION WIDTH 13.4 % (11.5-14.5)
[2018-08-01 05:48] LABS: ANION GAP 6 (5-13); BLOOD UREA NITROGEN 3 mg/dl (7-20); CALCIUM 8.5 mg/dl (8.4-10.2); CARBON DIOXIDE 30 mmol/L (21-31); CHLORIDE 98 mmol/L (97-110); CREATININE 0.38 mg/dl (0.44-1.00); Estimated GFR > 60 mL/min (>60); GLUCOSE 92 mg/dl (70-220); MAGNESIUM 1.5 mg/dl (1.7-2.5); POTASSIUM 3.4 mmol/L (3.5-5.1); SODIUM 134 mmol/L (135-144)
[2018-08-01] MEDS: CEFAZOLIN 2 GM/50 ML (PMX) 50 ML IVPB ×3 (06:50→21:57)
[2018-08-01] MEDS: DOCUSATE SODIUM 100 MG CAP PO ×2 (09:00→21:56)
[2018-08-01] MEDS: SODIUM CHLORIDE 5% BOTH EYES ×2 (09:00→21:00)
[2018-08-01] MEDS: CALCIUM CARBONATE 500 MG CHEW TAB PO ×3 (09:33→18:10)
[2018-08-01] MEDS: LAMOTRIGINE 100 MG TAB PO ×2 (09:33→21:56)
[2018-08-01] MEDS: ARIPIPRAZOLE 10 MG TAB PO (09:34)
[2018-08-01] MEDS: GABAPENTIN 400 MG CAP PO ×2 (09:34→21:56)
[2018-08-01] MEDS: FAMOTIDINE 20 MG TAB PO (09:34)
[2018-08-01] MEDS: FLUTICASONE/VILANTEROL 200-25 INH DEVICE INH (09:35)
[2018-08-01] MEDS: PHENYTOIN 100 MG CAP PO ×2 (09:35→21:56)
[2018-08-01] MEDS: DULOXETINE 30 MG CAP DR PO ×2 (09:35→21:56)
[2018-08-01] MEDS: AMLODIPINE 5 MG TAB PO (09:36)
[2018-08-01] MEDS: HYDROCHLOROTHIAZIDE 12.5 MG CAP PO (09:36)
[2018-08-01] MEDS: FERROUS SULFATE (EC) 325 MG TAB PO (12:31)
[2018-08-01] MEDS: POTASSIUM CHLORIDE (SR) 20 MEQ TAB PO (12:31)
[2018-08-01] MEDS: MAGNESIUM SULFATE 1 GM/D5W 100 ML IVPB (12:32)
[2018-08-01] MEDS: KETOROLAC 15 MG INJ IV (17:00)
[2018-08-01] MEDS: traZODone 100 MG TAB PO (21:56)
[2018-08-02] MEDS: HYDROCODONE/APAP (5/325) TAB PO ×3 (02:09→10:26)
[2018-08-02 05:52] LABS: ADD MAN DIFF? NO
[2018-08-02 05:58] LABS: WHITE BLOOD COUNT 9.3 10^3/ul (4.8-10.8)
[2018-08-02 05:58] LABS: BASOPHILS % 0.3 % (0.0-2.0); EOSINOPHILS # 0.2 10^3/ul (0.0-0.5); EOSINOPHILS % 2.3 % (0.0-7.0); HEMATOCRIT 24.6 % (37.0-47.0); HEMOGLOBIN 8.2 g/dl (12.0-16.0); LYMPHOCYTES # 1.5 10^3/ul (0.8-2.9); MEAN CORPUSCULAR HEMOGLOBIN 30.5 pg (29.0-33.0); MEAN CORPUSCULAR HGB CONC 33.3 g/dl (32.0-37.0); MEAN CORPUSCULAR VOLUME 91.4 fl (82.0-101.0); MEAN PLATELET VOLUME 8.9 fl (7.4-10.4); MONOCYTE # 0.9 10^3/ul (0.3-0.9); MONOCYTES % 9.4 % (0.0-11.0); NEUTROPHIL # 6.4 10^3/ul (1.6-7.5); NEUTROPHILS % 68.5 % (39.0-77.0); NUCLEATED RED BLOOD CELLS% 0.3 /100WBC (0.0-0.0); PLATELET COUNT 302 10^3/UL (140-415); RED BLOOD COUNT 2.69 10^6/ul (4.20-5.40); RED CELL DISTRIBUTION WIDTH 13.7 % (11.5-14.5)
[2018-08-02] MEDS: CEFAZOLIN 2 GM/50 ML (PMX) 50 ML IVPB ×2 (06:07→14:16)
[2018-08-02] MEDS: PANTOPRAZOLE (EC) 40 MG TAB PO (06:07)
[2018-08-02 06:17] LABS: IRON 10 ug/dl (35-150)
[2018-08-02 06:24] LABS: ANION GAP 7 (5-13); BLOOD UREA NITROGEN 3 mg/dl (7-20); CALCIUM 8.4 mg/dl (8.4-10.2); CARBON DIOXIDE 32 mmol/L (21-31); CHLORIDE 97 mmol/L (97-110); CREATININE 0.41 mg/dl (0.44-1.00); Estimated GFR > 60 mL/min (>60); GLUCOSE 103 mg/dl (70-220); MAGNESIUM 1.7 mg/dl (1.7-2.5); POTASSIUM 3.4 mmol/L (3.5-5.1); SODIUM 136 mmol/L (135-144)
[2018-08-02 06:26] LABS: % IRON SATURATION 4 % SAT (22-52); TOTAL IRON BINDING CAPACITY 247 ug/dl (241-421)
[2018-08-02] MEDS: GABAPENTIN 400 MG CAP PO (08:25)
[2018-08-02] MEDS: DULOXETINE 30 MG CAP DR PO (08:26)
[2018-08-02] MEDS: FERROUS SULFATE (EC) 325 MG TAB PO (08:27)
[2018-08-02] MEDS: PHENYTOIN 100 MG CAP PO (08:27)
[2018-08-02] MEDS: DOCUSATE SODIUM 100 MG CAP PO (08:28)
[2018-08-02] MEDS: CALCIUM CARBONATE 500 MG CHEW TAB PO ×3 (08:28→18:55)
[2018-08-02] MEDS: ARIPIPRAZOLE 10 MG TAB PO (08:28)
[2018-08-02] MEDS: LAMOTRIGINE 100 MG TAB PO (08:29)
[2018-08-02] MEDS: AMLODIPINE 5 MG TAB PO (08:30)
[2018-08-02] MEDS: HYDROCHLOROTHIAZIDE 12.5 MG CAP PO (08:30)
[2018-08-02] MEDS: FLUTICASONE/VILANTEROL 200-25 INH DEVICE INH (08:35)
[2018-08-02] MEDS: SODIUM CHLORIDE 5% BOTH EYES (09:00)
[2018-08-02] MEDS: OXYCODONE/ACETAMINOPHEN (5/325) TAB PO ×3 (14:18→18:25)
== END 2018-08-02 18:50 | DRG 454 ==
LOC: MS1 07-29 17:19 → E/R 11:09 → ICU 07-25 11:10 → MS1 15:02
PROC: 0SG10A0 Fusion of 2 or more Lumbar Vertebral Joints with Interbody Fusion Device, Anterior Approach, Anterior Column, Open Approach (ICD-10-PCS; principal; 2018-07-25 08:00)
PROC: 0SG30A0 Fusion of Lumbosacral Joint with Interbody Fusion Device, Anterior Approach, Anterior Column, Open Approach (ICD-10-PCS; 2018-07-25 08:00)
PROC: 0SB20ZZ Excision of Lumbar Vertebral Disc, Open Approach (ICD-10-PCS; 2018-07-25 08:00)
PROC: 0SB40ZZ Excision of Lumbosacral Disc, Open Approach (ICD-10-PCS; 2018-07-25 08:00)
PROC: 0SG10K1 Fusion of 2 or more Lumbar Vertebral Joints with Nonautologous Tissue Substitute, Posterior Approach, Posterior Column, Open Approach (ICD-10-PCS; 2018-07-25 08:36)
PROC: 01NB0ZZ Release Lumbar Nerve, Open Approach (ICD-10-PCS; 2018-07-25 08:36)
PROC: 0SG30K1 Fusion of Lumbosacral Joint with Nonautologous Tissue Substitute, Posterior Approach, Posterior Column, Open Approach (ICD-10-PCS; 2018-07-25 08:36)
PROC: 01BB0ZZ Excision of Lumbar Nerve, Open Approach (ICD-10-PCS; 2018-07-25 08:36)
PROC: 30233N1 Transfusion of Nonautologous Red Blood Cells into Peripheral Vein, Percutaneous Approach (ICD-10-PCS; 2018-07-25 08:36)
DX: M51.17 Intervertebral disc disorders with radiculopathy, lumbosacral region (principal); D62 Acute posthemorrhagic anemia; M47.26 Other spondylosis with radiculopathy, lumbar region; E83.42 Hypomagnesemia; E87.6 Hypokalemia; E66.9 Obesity, unspecified; E88.2 Lipomatosis, not elsewhere classified; F31.9 Bipolar disorder, unspecified; G89.4 Chronic pain syndrome; G89.18 Other acute postprocedural pain; I10 Essential (primary) hypertension; J45.909 Unspecified asthma, uncomplicated; M71.38 Other bursal cyst, other site; R20.2 Paresthesia of skin; Z68.31 Body mass index [BMI] 31.0-31.9, adult; Z87.820 Personal history of traumatic brain injury; Z87.891 Personal history of nicotine dependence; Z79.1 Long term (current) use of non-steroidal anti-inflammatories (NSAID)
CPT/HCPCS: 36415; 36430; 71045; 72100; 72131; 80048; 80053; 83540; 83735; 84100; 85014; 85018; 85025; 85610; 85730; 86850; 86900; 86901; 86920; 87081; 88304; 88311; 93005; 97110; 97116; 97162; 97165; 97530; 97535; 99285-25